=== PATIENT | male | born 1995 | race Caucasian/White ===

== ENCOUNTER 2021-09-20 13:33 | Emergency (ER) | payer MEDICAID ==
[~2021-09-20] VITALS: Ht 193 cm; Wt 133.8 kg
--- NOTE | 2021-09-20 13:46 | NUR ---
DR MICHAEL AT BEDSIDE
--- NOTE | 2021-09-20 13:50 | NUR ---
PT CAME TO ER C/O SOB ON EXERTION X 2 WEEKS S/P COVID + 2 WEEKS AGO. PT HAD NEGATIVE COVID TEST 2 DAYS AGO. AAOX4, BREATHING EVEN AND UNLABORED, NOT IN RESPIRATORY DISTRESS. ON MONITOR. POX 95% ON ROOM AIR. TACHYCARDIC HR 111.
[2021-09-20] MEDS ORDERED: ALBU8.5H8 INH (14:21)
--- NOTE | 2021-09-20 14:28 | NUR ---
Patient discharged to home in stable condition. Written and verbal after care instructions given. Patient verbalizes understanding of instruction.
[2021-09-20 14:29] VITALS: BP 139/103
== END 2021-09-20 14:30 | disposition home or self-care (01) ==
LOC: ER 13:41
DX: R06.02 Shortness of breath (principal)
CPT/HCPCS: 71045-TC